=== PATIENT | female | born 1960 | race Caucasian/White ===

== ENCOUNTER 2018-01-31 08:06 | Day surgery (SDC) | payer BC, OTHER ==
[2018-01-31] MEDS ORDERED: LIDOCAINE 2% (SDV) 5 ML INJ (09:36)
[2018-01-31] MEDS ORDERED: PROPOFOL 20 ML (09:36)
[2018-01-31] MEDS ORDERED: MIDAZOLAM 1 MG/ML 2 ML INJ (09:37)
== END 2018-01-31 15:06 | disposition home or self-care (01) ==
LOC: GIL 08:06
DX: Z12.11 Encounter for screening for malignant neoplasm of colon (principal); D12.6 Benign neoplasm of colon, unspecified; K64.8 Other hemorrhoids; I10 Essential (primary) hypertension; E78.5 Hyperlipidemia, unspecified
CPT/HCPCS: 45380; 88305